=== PATIENT | male | born 1965 | race Caucasian/White ===

== ENCOUNTER 2021-11-09 16:33 | Inpatient (IN) ==
[2021-11-09] MEDS ORDERED: *HR* HYDROmorphone (PF) 1 MG/ML SYRINGE IVP ONE (19:10)
[2021-11-09 19:12] LABS: Basophils % 0.2 %; Eosinophils # 0.1 K/mcL (0.0-0.6); Hematocrit 33.9 % (37.5-50.1); Immature Granulocytes % 0.5 % (0-4); Lymphocytes # 0.7 K/mcL (0.6-4.6); Lymphocytes % 5.8 %; Mean Corpuscular HGB Conc 35.4 g/dL (31.6-35.5); Mean Corpuscular Hemoglobin 30.2 pg (28.0-33.3); Mean Corpuscular Volume 85.2 fL (83.0-100.0); Mean Platelet Volume 9.6 fL (9.4-12.4); Monocytes % 7.5 %; Neutrophils # 10.9 K/mcL (1.6-8.9); Platelet Count 263 K/mcL (140-400); Red Blood Count 3.98 M/mcL (4.19-5.50); Red Cell Distribution Width 13.8 % (11.5-14.5); White Blood Count 12.8 K/mcL (4.3-11.1)
[2021-11-09 19:20] LABS: INR 1.1; Prothrombin Time 12.2 Seconds (9.4-12.1)
[2021-11-09 19:32] LABS: BUN/Creatinine Ratio 11 (6-26); Blood Urea Nitrogen 5 mg/dL (6-20); Calcium 9.2 mg/dL (8.6-10.3); Carbon Dioxide 25 mEq/L (23-29); Chloride 88 mEq/L (98-107); Glucose 141 mg/dL (70-105); Osmolality,Calculated 256 (280-300); Potassium 3.1 mEq/L (3.5-5.1); Sodium 123 mEq/L (136-145); eGFR For African Americans > 60 (> 60); eGFR For Non-African Americans > 60 (> 60)
[2021-11-09] MEDS ORDERED: Acetaminophen 325 MG TABLET PO PRN (19:43)
[2021-11-09] MEDS ORDERED: *HR* HYDROcodone/Acet 5/325 mg TABLET PO PRN (19:43)
[2021-11-09] MEDS ORDERED: Naloxone 0.4 MG/ML INJ IVP PRN (19:43)
[2021-11-09] MEDS ORDERED: Dextrose Gel 15 GM/37.5 ML TUBE PO PRN ×2 (20:06)
[2021-11-09] MEDS ORDERED: *HR* Dextrose 50 % in Water (Syg) 50 ML SYRINGE IVP PRN (20:06)
[2021-11-09] MEDS ORDERED: D5% in Water 1,000 ML IVC PRN (20:06)
[2021-11-09] MEDS ORDERED: Melatonin 3 MG TABLET PO PRN (20:46)
[2021-11-09] MEDS ORDERED: Ondansetron 4 MG/2 ML VIAL IVP PRN (20:46)
[2021-11-09] MEDS ORDERED: 0.9 % Sodium Chloride 1,000 ML IVC SCH (21:15)
[2021-11-09] MEDS ORDERED: Saliva Stimulant 44.3ml BOTTLE PO PRN (21:39)
[2021-11-09] MEDS: Ipratropium/Albuterol Neb 3 ML IH SCH (21:41)
[2021-11-09] MEDS: Nicotine 14 MG PATCH.TD24 TD SCH (22:34)
[2021-11-10] MEDS: Divalproex (24 HR) 500 MG TABLET PO SCH ×2 (00:07→23:13)
[2021-11-10 00:30] LABS: Basophils % 0.2 %; Hematocrit 31.6 % (37.5-50.1); Hemoglobin 11.7 g/dL (12.9-16.9); Immature Granulocytes % 0.4 % (0-4); Lymphocytes # 0.4 K/mcL (0.6-4.6); Lymphocytes % 3.4 %; Mean Corpuscular Hemoglobin 31.1 pg (28.0-33.3); Mean Platelet Volume 9.5 fL (9.4-12.4); Monocytes % 8.1 %; Neutrophils # 10.9 K/mcL (1.6-8.9); Platelet Count 241 K/mcL (140-400); Red Blood Count 3.76 M/mcL (4.19-5.50); Red Cell Distribution Width 13.7 % (11.5-14.5); Segmented Neutrophils % 87.9 %; White Blood Count 12.4 K/mcL (4.3-11.1)
[2021-11-10 00:50] LABS: BUN/Creatinine Ratio 16 (6-26); Blood Urea Nitrogen 7 mg/dL (6-20); Calcium 9.3 mg/dL (8.6-10.3); Carbon Dioxide 25 mEq/L (23-29); Chloride 88 mEq/L (98-107); Glucose 150 mg/dL (70-105); Magnesium 1.5 mg/dL (1.6-2.6); Osmolality,Calculated 255 (280-300); Phosphorous 3.6 mg/dL (2.7-4.5); Potassium 3.4 mEq/L (3.5-5.1); Sodium 122 mEq/L (136-145); eGFR For African Americans > 60 (> 60); eGFR For Non-African Americans > 60 (> 60)
[2021-11-10 00:51] LABS: Iron 18 mcg/dL (65-175)
[2021-11-10 01:09] LABS: Ferritin 774 ng/mL (20-250)
[2021-11-10 01:14] LABS: Folate 10.6 ng/mL (3.0-16.0)
[2021-11-10 02:05] LABS: % Iron Saturation 6 % (20-55); Transferrin 222 mg/dL (203-362)
[2021-11-10 02:28] LABS: Sodium, Urine 65.1 mEq/L
[2021-11-10] MEDS: Ipratropium/Albuterol Neb 3 ML IH SCH ×4 (04:42→21:41)
[2021-11-10] MEDS: Cholecalciferol (D-3) 1,000 UNIT (25MCG) TABLET PO SCH (09:27)
[2021-11-10] MEDS: hydrOXYzine pamoate 25 MG CAPSULE PO SCH ×3 (09:28→23:18)
[2021-11-10] MEDS: lisinopriL 20 MG TABLET PO SCH (09:28)
[2021-11-10] MEDS: Multivit/Ca/Min/Fe/FA 1 TAB TABLET PO SCH (09:28)
[2021-11-10] MEDS: *HR* OxyCODONE Immed Rel 5 MG TABLET PO PRN (11:51)
[2021-11-10] MEDS: *HR* Labetalol 20 MG/4 ML SYRINGE IVP PRN ×2 (11:51→19:17)
[2021-11-10] MEDS: Piperacillin/Tazobactam 3.375 GM in 0.9 % Sodium Chloride Mini Bag 100 ML IVPB SCH ×2 (16:39→23:14)
[2021-11-10 22:21] LABS: Bilirubin,Urine Negative (Negative); Blood,Urine Large (Negative); Clarity,Urine Clear (Clear); Color,Urine Light-Yellow (Yellow); Glucose,Urine (UA) Normal (Normal); Ketones,Urine Negative (Negative); Leukocyte Esterase,Urine Negative (Negative); Nitrite,Urine Negative (Negative); PH,Urine 6.5 pH Units (5.0-8.0); Protein,Urine 70 mg/dL (Neg-Trace); RBC,Urine TNTC per hpf (0-3); Specific Gravity,Urine 1.018 (1.010-1.025); Squamous Epithelial Cell,Urine Few per hpf (None-Few); Urobilinogen,Urine Normal (Normal); WBC,Urine 15-30 per hpf (0-3)
[2021-11-10] MEDS: Nicotine 14 MG PATCH.TD24 TD SCH (23:14)
[2021-11-11] MEDS: *HR* OxyCODONE Immed Rel 5 MG TABLET PO PRN (01:56)
[2021-11-11 02:34] LABS: Basophils % 0.1 %; Eosinophils % 0.1 %; Hematocrit 25.8 % (37.5-50.1); Immature Granulocytes % 0.5 % (0-4); Lymphocytes % 7.9 %; Mean Corpuscular HGB Conc 36.4 g/dL (31.6-35.5); Mean Corpuscular Hemoglobin 30.8 pg (28.0-33.3); Mean Corpuscular Volume 84.6 fL (83.0-100.0); Mean Platelet Volume 9.8 fL (9.4-12.4); Monocytes # 1.3 K/mcL (0.0-1.3); Monocytes % 10.8 %; Neutrophils # 9.7 K/mcL (1.6-8.9); Platelet Count 212 K/mcL (140-400); Red Blood Count 3.05 M/mcL (4.19-5.50); Red Cell Distribution Width 14.3 % (11.5-14.5); Segmented Neutrophils % 80.6 %
[2021-11-11 02:35] LABS: Hemoglobin 9.4 g/dL (12.9-16.9)
[2021-11-11 03:10] LABS: BUN/Creatinine Ratio 18 (6-26); Blood Urea Nitrogen 11 mg/dL (6-20); Carbon Dioxide 23 mEq/L (23-29); Chloride 93 mEq/L (98-107); Glucose 120 mg/dL (70-105); Magnesium 1.8 mg/dL (1.6-2.6); Osmolality,Calculated 259 (280-300); Potassium 4.4 mEq/L (3.5-5.1); Sodium 124 mEq/L (136-145); Thyroid Stimulating Hormone 3.382 mcIU/mL (0.340-5.600); eGFR For African Americans > 60 (> 60); eGFR For Non-African Americans > 60 (> 60)
[2021-11-11] MEDS: Ipratropium/Albuterol Neb 3 ML IH SCH ×4 (03:50→19:51)
[2021-11-11] MEDS ORDERED: Famotidine 20 MG/2 ML VIAL IVP ONE (06:14)
[2021-11-11] MEDS ORDERED: Lidocaine HCL 4 ML Topical Solution (Laryng-O-Jet Kit Sterile Pak) TP ONE (07:17)
[2021-11-11] MEDS ORDERED: *HR* Midazolam HCl 2 MG/2 ML VIAL ONE (07:21)
[2021-11-11] MEDS ORDERED: *HR* FentaNYL (PF) 100 MCG/2 ML VIAL ONE (07:21)
[2021-11-11] MEDS ORDERED: CeFAZolin Syr 2,000MG/20 ML 2,000 MG/20 ML SYRINGE IVPB ONE (07:21)
[2021-11-11] MEDS ORDERED: Lidocaine -MPF 2% 5 ML VIAL ONE (07:22)
[2021-11-11] MEDS ORDERED: *HR* Propofol 200 MG/20 ML VIAL IVP ONE (07:23)
[2021-11-11] MEDS ORDERED: Ondansetron 4 MG/2 ML VIAL ONE (07:23)
[2021-11-11] MEDS ORDERED: Albuterol 2.5 MG/3 ML NEBULIZER IH ONE (07:28)
[2021-11-11] MEDS ORDERED: Acetaminophen IV 1,000 MG/100 ML BAG IVPB ONE (07:30)
[2021-11-11] MEDS ORDERED: Ringers Solution, Lactated 1,000 ML IVC SCH (07:30)
[2021-11-11] MEDS ORDERED: *HR* Phenylephrine 10 MG/ML VIAL ONE (08:09)
[2021-11-11] MEDS ORDERED: *HR* Vasopressin 20 UNIT/ML VIAL ONE (08:19)
[2021-11-11] MEDS ORDERED: *HR* HYDROmorphone (PF) 1 MG/ML SYRINGE IVP PRN (08:25)
[2021-11-11] MEDS ORDERED: EPHEDrine 50 MG/ML VIAL ONE (08:46)
[2021-11-11] MEDS ORDERED: Sugammadex Sodium 200 MG/2 ML VIAL IV ONE (09:06)
[2021-11-11] MEDS ORDERED: Saliva Stimulant 44.3ml BOTTLE PO PRN (11:24)
[2021-11-11] MEDS ORDERED: *HR* OxyCODONE Immed Rel 5 MG TABLET PO PRN (11:24)
[2021-11-11] MEDS ORDERED: Melatonin 3 MG TABLET PO PRN (11:24)
[2021-11-11] MEDS ORDERED: D5% in Water 1,000 ML IVC PRN (11:24)
[2021-11-11] MEDS ORDERED: *HR* Labetalol 20 MG/4 ML SYRINGE IVP PRN (11:24)
[2021-11-11] MEDS ORDERED: Naloxone 0.4 MG/ML INJ IVP PRN (11:24)
[2021-11-11] MEDS ORDERED: *HR* Dextrose 50 % in Water (Syg) 50 ML SYRINGE IVP PRN (11:24)
[2021-11-11] MEDS ORDERED: Dextrose Gel 15 GM/37.5 ML TUBE PO PRN ×2 (11:24)
[2021-11-11] MEDS ORDERED: Ondansetron 4 MG/2 ML VIAL IVP PRN (11:24)
[2021-11-11 11:28] LABS: BUN/Creatinine Ratio 15 (6-26); Blood Urea Nitrogen 12 mg/dL (6-20); Calcium 8.8 mg/dL (8.6-10.3); Carbon Dioxide 24 mEq/L (23-29); Chloride 94 mEq/L (98-107); Glucose 130 mg/dL (70-105); Osmolality,Calculated 262 (280-300); Potassium 4.2 mEq/L (3.5-5.1); Sodium 125 mEq/L (136-145); eGFR For African Americans > 60 (> 60); eGFR For Non-African Americans > 60 (> 60)
[2021-11-11] MEDS: Piperacillin/Tazobactam 3.375 GM in 0.9 % Sodium Chloride Mini Bag 100 ML IVPB SCH ×3 (14:39→22:51)
[2021-11-11] MEDS: hydrOXYzine pamoate 25 MG CAPSULE PO SCH ×3 (14:49→20:18)
[2021-11-11] MEDS: *HR* HYDROcodone/Acet 5/325 mg TABLET PO PRN (16:10)
[2021-11-11] MEDS: Acetaminophen 325 MG TABLET PO SCH ×2 (16:11→22:52)
[2021-11-11] MEDS: lisinopriL 20 MG TABLET PO SCH (17:06)
[2021-11-11] MEDS: Cholecalciferol (D-3) 1,000 UNIT (25MCG) TABLET PO SCH (17:06)
[2021-11-11] MEDS: Multivit/Ca/Min/Fe/FA 1 TAB TABLET PO SCH (17:06)
[2021-11-11] MEDS: Divalproex (24 HR) 500 MG TABLET PO SCH (20:18)
[2021-11-11] MEDS: Nicotine 14 MG PATCH.TD24 TD SCH (20:19)
[2021-11-11] MEDS: *HR* Enoxaparin 40 MG/0.4 ML SYRINGE SQ SCH (20:19)
[2021-11-12] MEDS: *HR* HYDROcodone/Acet 5/325 mg TABLET PO PRN (03:09)
[2021-11-12] MEDS: Ipratropium/Albuterol Neb 3 ML IH SCH ×4 (04:02→22:39)
[2021-11-12] MEDS: Acetaminophen 325 MG TABLET PO SCH ×4 (04:11→21:02)
[2021-11-12 04:19] LABS: Basophils % 0.1 %; Hematocrit 23.1 % (37.5-50.1); Immature Granulocytes % 0.5 % (0-4); Lymphocytes # 0.9 K/mcL (0.6-4.6); Mean Corpuscular HGB Conc 34.6 g/dL (31.6-35.5); Mean Corpuscular Hemoglobin 30.5 pg (28.0-33.3); Mean Corpuscular Volume 88.2 fL (83.0-100.0); Mean Platelet Volume 10.2 fL (9.4-12.4); Monocytes # 1.2 K/mcL (0.0-1.3); Monocytes % 11.4 %; Neutrophils # 8.6 K/mcL (1.6-8.9); Platelet Count 189 K/mcL (140-400); Red Blood Count 2.62 M/mcL (4.19-5.50); Red Cell Distribution Width 14.8 % (11.5-14.5); White Blood Count 10.8 K/mcL (4.3-11.1)
[2021-11-12 04:40] LABS: BUN/Creatinine Ratio 24 (6-26); Blood Urea Nitrogen 18 mg/dL (6-20); Calcium 8.8 mg/dL (8.6-10.3); Carbon Dioxide 25 mEq/L (23-29); Chloride 93 mEq/L (98-107); Glucose 104 mg/dL (70-105); Magnesium 1.9 mg/dL (1.6-2.6); Osmolality,Calculated 266 (280-300); Sodium 127 mEq/L (136-145); eGFR For African Americans > 60 (> 60); eGFR For Non-African Americans > 60 (> 60)
[2021-11-12] MEDS: *HR* Enoxaparin 40 MG/0.4 ML SYRINGE SQ SCH (05:59)
[2021-11-12] MEDS: Piperacillin/Tazobactam 3.375 GM in 0.9 % Sodium Chloride Mini Bag 100 ML IVPB SCH (05:59)
[2021-11-12] MEDS: Aspirin Enteric Coated 81 MG Tablet PO SCH (08:17)
[2021-11-12] MEDS: Multivit/Ca/Min/Fe/FA 1 TAB TABLET PO SCH (08:18)
[2021-11-12] MEDS: lisinopriL 20 MG TABLET PO SCH (08:18)
[2021-11-12] MEDS: Cholecalciferol (D-3) 1,000 UNIT (25MCG) TABLET PO SCH (08:18)
[2021-11-12] MEDS: hydrOXYzine pamoate 25 MG CAPSULE PO SCH ×3 (08:18→21:02)
[2021-11-12] MEDS ORDERED: Cholecalciferol (D-3) 1,000 UNIT (25MCG) TABLET PO SCH (09:00)
[2021-11-12] MEDS: Divalproex (24 HR) 500 MG TABLET PO SCH (21:02)
[2021-11-12] MEDS: Nicotine 14 MG PATCH.TD24 TD SCH (21:02)
[2021-11-13] MEDS: *HR* HYDROcodone/Acet 5/325 mg TABLET PO PRN (02:12)
[2021-11-13] MEDS: Acetaminophen 325 MG TABLET PO SCH ×2 (03:36→09:13)
[2021-11-13] MEDS: Ipratropium/Albuterol Neb 3 ML IH SCH ×3 (03:47→15:46)
[2021-11-13] MEDS: *HR* Enoxaparin 40 MG/0.4 ML SYRINGE SQ SCH (05:09)
[2021-11-13 06:07] LABS: Hemoglobin 7.8 g/dL (12.9-16.9); Mean Corpuscular HGB Conc 33.9 g/dL (31.6-35.5); Mean Corpuscular Hemoglobin 30.6 pg (28.0-33.3); Mean Corpuscular Volume 90.2 fL (83.0-100.0); Mean Platelet Volume 10.6 fL (9.4-12.4); Platelet Count 228 K/mcL (140-400); Red Blood Count 2.55 M/mcL (4.19-5.50); Red Cell Distribution Width 14.7 % (11.5-14.5); White Blood Count 8.4 K/mcL (4.3-11.1)
[2021-11-13 07:39] LABS: BUN/Creatinine Ratio 28 (6-26); Blood Urea Nitrogen 18 mg/dL (6-20); Carbon Dioxide 24 mEq/L (23-29); Chloride 95 mEq/L (98-107); Glucose 87 mg/dL (70-105); Osmolality,Calculated 265 (280-300); Potassium 3.8 mEq/L (3.5-5.1); Sodium 127 mEq/L (136-145); eGFR For African Americans > 60 (> 60); eGFR For Non-African Americans > 60 (> 60)
[2021-11-13] MEDS: hydrOXYzine pamoate 25 MG CAPSULE PO SCH ×2 (09:13→14:55)
[2021-11-13] MEDS: Cholecalciferol (D-3) 1,000 UNIT (25MCG) TABLET PO SCH (09:13)
[2021-11-13] MEDS: lisinopriL 20 MG TABLET PO SCH (09:14)
[2021-11-13] MEDS: Aspirin Enteric Coated 81 MG Tablet PO SCH (09:14)
[2021-11-13] MEDS: Multivit/Ca/Min/Fe/FA 1 TAB TABLET PO SCH (09:14)
[2021-11-13 11:09] LABS: Influenza A PCR Negative (Negative); Influenza B PCR Negative (Negative); Resp. Syncytial Virus PCR Negative (Negative); SARS-CoV-2 by PCR (In House) Negative (Negative)
[2021-11-13 11:17] VITALS: BP 138/90; PULSE 96; TEMP 97.7; O2SAT 94
== END 2021-11-13 16:00 | DRG 481 ==
LOC: EMEROOARM 16:33 → 4WAOSI 16:33 → SUATTDRO 18:57 → 4WAOSI 20:55
PROVIDERS: ADMIT Internal Medicine; ATTEND Internal Medicine